=== PATIENT | male | born 1995 | race Caucasian/White ===

== ENCOUNTER 2019-04-25 20:49 | Emergency (ER) | payer OTHER ==
[2019-04-25 21:01] VITALS: BP 119/84; PULSE 61; TEMP 98.1; BMI 27.3
[2019-04-25] MEDS ORDERED: SODIUM CHLORIDE 1,000 ML IV STA (21:57)
[2019-04-25] MEDS ORDERED: ONDANSETRON 4 MG/2 ML VIAL IVPUSH ONE (21:57)
[2019-04-25] MEDS ORDERED: FAMOTIDINE 20 MG/50 ML IVPB 20 MG/50 ML MG IVPB ONE ×2 (21:57→22:10)
[2019-04-25] MEDS ORDERED: ACETAMINOPHEN 1000 MG/100 ML VIAL (NON FORMULARY) IVPB ONE (21:57)
--- NOTE | 2019-04-25 21:57 | PDOC ---
History of Present Illness <Wes Singh - Last Filed: 04/26/19 00:50> - General History Source: Patient Exam Limitations: No Limitations <Carly Mahajan - Last Filed: 04/26/19 01:08> - General Chief Complaint: Pain Stated Complaint: ABD/BACK/PAIN/VOMITTING/NAUSEA Time Seen by Provider: 04/25/19 21:32 Past History <Wes Singh - Last Filed: 04/26/19 00:50> - Travel Traveled outside of the country in the last 30 days: No Close contact w/someone who was outside of country & ill: No - Past Medical History CVA: No COPD: No - Psycho Social/Smoking Cessation Hx Smoking History: Never smoked Have you smoked in the past 12 months: No Information on smoking cessation initiated: No Hx Alcohol Use: No Drug/Substance Use Hx: No <Carly Mahajan - Last Filed: 04/26/19 01:08> - Past Medical History Allergies/Adverse Reactions: Allergies Allergy/AdvReac Type Severity Reaction Status Date / Time No Known Allergies Allergy Verified 04/25/19 21:01 Home Medications: Ambulatory Orders Famotidine [Pepcid -] 20 mg PO BID #14 tablet 04/26/19 Mag Hydrox/Al Hydrox/Simeth [Mylanta *Suspension*] 30 ml PO Q6H #1 bottle Ondansetron [Zofran Odt -] 4 mg SL TID #10 od.tablet 04/26/19 Review of Systems - Review of Systems Able to Perform ROS?: Yes Comments:: 04/26/19 00:56 CONSTITUTIONAL: Absent: fever, chills, diaphoresis, generalized weakness, malaise, loss of appetite HEENT: Absent: rhinorrhea, nasal congestion, throat pain, throat swelling, difficulty swallowing, mouth swelling, ear pain, eye pain, visual Changes CARDIOVASCULAR: Absent: chest pain, loss of consciousness, palpitations, irregular heart rate, peripheral edema RESPIRATORY: Absent: cough, shortness of breath, dyspnea with exertion, orthopnea, wheezing, stridor, hemoptysis GASTROINTESTINAL: Present: Abdominal pain, vomiting, nausea Absent: abdominal distension, diarrhea , constipation, melena, hematochezia GENITOURINARY: Absent: dysuria, frequency, urgency, hesitancy, hematuria, flank pain, genital pain MUSCULOSKELETAL: Absent: myalgia, arthralgia, joint swelling SKIN: Absent: rash, itching, pallor NEUROLOGIC: Absent: headache, focal weakness or paresthesias, dizziness, unsteady gait, seizure, mental status changes, bladder or bowel incontinence PSYCHIATRIC: Absent: anxiety, depression, suicidal or homicidal ideation, hallucinations. Is the patient limited [place] proficient: No <Carly Mahajan - Last Filed: 04/26/19 01:08> *Physical Exam - Vital Signs Last Vital Signs Temp Pulse Resp BP Pulse Ox 98.1 F 61 18 119/84 100 04/25/19 20:57 04/25/19 20:57 04/25/19 20:57 04/25/19 20:57 04/25/19 20:57 <FranciscoWes person - Last Filed: 04/26/19 00:50> - Vital Signs Last Vital Signs Temp Pulse Resp BP Pulse Ox 98.1 F 61 18 119/84 100 04/25/19 20:57 04/25/19 20:57 04/25/19 20:57 04/25/19 20:57 04/25/19 20:57 - Physical Exam 04/26/19 00:57 GENERAL: Well developed, well nourished. Awake and alert. No acute distress. HEENT: Normocephalic, atraumatic. PERRLA, EOMI. No conjunctival pallor. Sclera are non- icteric. Moist mucous membranes. Oropharynx is clear. NECK: Supple. Full ROM. CARDIOVASCULAR: Regular rate and rhythm. No murmurs, rubs, or gallops. Distal pulses are 2+ and symmetric. PULMONARY: No evidence of respiratory distress. Lungs clear to auscultation bilaterally. No wheezing, rales or rhonchi. ABDOMINAL: Tenderness palpation of the epigastric/right upper quadrant. Negative Corea sign. Soft. Non-distended. No rebound or guarding. No organomegaly. Normoactive bowel sounds. MUSCULOSKELETAL Normal range of motion at all joints. No bony deformities or tenderness. No CVA tenderness. EXTREMITIES: No cyanosis. No clubbing. No edema. No calf tenderness. SKIN: Warm and dry. Normal capillary refill. No rashes. No jaundice. NEUROLOGICAL: Alert, awake, appropriate. Cranial nerves 2-12 intact. No deficits to light touch and temperature in face, upper extremities and lower extremities. No motor deficits in the in face, upper extremities and lower extremities. Normoreflexic in the upper and lower extremities. Normal speech. Toes are down- going bilaterally. Gait is normal without ataxia. PSYCHIATRIC: Cooperative. Good eye contact. Appropriate mood and affect. <Carly Mahajan - Last Filed: 04/26/19 01:08> ED Treatment Course - LABORATORY CBC & Chemistry Diagram: 04/25/19 22:06 04/25/19 22:06 - ADDITIONAL ORDERS Additional order review: Laboratory Results 04/25/19 04/25/19 04/25/19 22:16 22:06 22:06 PT with INR 11.90 INR 1.01 Sodium Potassium Chloride Carbon Dioxide Anion Gap BUN Creatinine Est GFR (CKD-EPI)AfAm Est GFR (CKD-EPI)NonAf Random Glucose Calcium Total Bilirubin AST ALT Alkaline Phosphatase Total Protein Albumin Lipase 64 L Urine Color Yellow Urine Appearance Clear Urine pH 5.5 Ur Specific [place] 1.027 Urine Protein Negative Urine Glucose (UA) Negative Urine Ketones Negative Urine Blood Trace Urine Nitrite Negative Urine Bilirubin Negative Urine Urobilinogen 0.2 Ur Leukocyte Esterase Negative Urine WBC (Auto) 1 Urine RBC (Auto) 7 Urine Casts (Auto) 1 U Epithel Cells (Auto) 0.4 Urine Bacteria (Auto) 3.6 04/25/19 22:06 PT with INR INR Sodium 138 Potassium 4.2 Chloride 106 Carbon Dioxide 26 Anion Gap 5 L BUN 9.0 Creatinine 0.9 Est GFR (CKD-EPI)AfAm 138.06 Est GFR (CKD-EPI)NonAf 119.12 Random Glucose 145 H Calcium 8.9 Total Bilirubin 0.3 AST 35 ALT 34 Alkaline Phosphatase 77 Total Protein 7.6 Albumin 4.3 Lipase Urine Color Urine Appearance Urine pH Ur Specific [place] Urine Protein Urine Glucose (UA) Urine Ketones Urine Blood Urine Nitrite Urine Bilirubin Urine Urobilinogen Ur Leukocyte Esterase Urine WBC (Auto) Urine RBC (Auto) Urine Casts (Auto) U Epithel Cells (Auto) Urine Bacteria (Auto) 04/25/19 22:06 RBC 5.69 H MCV 88.0 MCHC 33.6 RDW 13.1 MPV 8.2 Neutrophils % 83.3 H Lymphocytes % 11.4 Monocytes % 4.3 Eosinophils % 0.7 Basophils % 0.3 - Medications Given in the ED: ED Medications Discontinued Medications Generic Name Dose Route Start Last Admin Trade Name Elma PRN Reason Stop Dose Admin Acetaminophen 1,000 mg 04/25/19 21:57 04/25/19 22:11 Ofirmev Injection - IVPB 04/25/19 21:58 1,000 mg ONCE ONE Administration Famotidine/Sodium Chloride 20 mg in 50 mls @ 100 mls/hr 04/25/19 21:57 22:11 Pepcid 20 Mg Premixed Ivpb - IVPB 04/25/19 22:26 100 mls/hr ONCE ONE Administration Sodium Chloride 1,000 mls @ 1,000 mls/hr 04/25/19 21:57 04/25/19 22:11 Normal Saline - IV 04/25/19 22:56 1,000 mls/hr ASDIR STA Administration Morphine Sulfate 2 mg 04/25/19 23:44 04/25/19 23:50 Morphine Injection - IVPUSH 04/25/19 23:45 2 mg ONCE ONE Administration Ondansetron HCl 4 mg 04/25/19 21:57 04/25/19 22:12 Zofran Injection IVPUSH 04/25/19 21:58 4 mg ONCE ONE Administration <Wes Singh - Last Filed: 04/26/19 00:50> - LABORATORY CBC & Chemistry Diagram: 04/25/19 22:06 04/25/19 22:06 <Carly Mahajan - Last Filed: 04/26/19 01:08> Medical Decision Making - Medical Decision Making 04/26/19 00:50 The patient was seen and evaluated in conjunction with RUPERT Mahajan under my direct supervision, ancillary studies were reviewed. I independently evaluated the patient and I agree with the plan as outlined by RUPERT Mahajan . <Wes Singh - Last Filed: 04/26/19 00:50> - Medical Decision Making 04/26/19 00:57 Patient is a 23-year-old male with no past medical history who presents to the ER with 3 days of nausea, vomiting and upper abdominal pain. He states that the pain got worse over the past 3 days. He notes that the pain is mostly in his upper mid stomach and radiates to the back. He last ate soup at 5 PM. He states the pain got worse after eating. He notes that he started vomiting today due to the pain. He has not taken any medication at home for his symptoms. Denies fevers, chills, sore throat, earache, difficulty breathing, chest pain, diarrhea, constipation and urinary symptoms. A/P: Abdominal pain On exam patient with epigastric/right upper quadrant pain. Negative Corea sign. No reproducible back pain. Lab work is relatively unremarkable, white count of 12 with no shift. Lipase is within normal limits, bilirubin within normal limits. Urine is negative for infection Right upper quadrant ultrasound shows no evidence of acute cholecystitis, cholelithiasis. CBD is not dilated. No evidence of pancreatitis Patient feels better after GI cocktail and morphine Likely a gastritis versus PUD versus reflux Will recommend supportive therapy and GI follow-up I discussed the physical exam findings, ancillary test results and final diagnoses with the patient. I answered all of the patient's questions. The patient was satisfied with the care received and felt comfortable with the discharge plan and treatment plan. The Patient agrees to follow up with the primary care physician/specialist within 24-72 hours. Return precautions were given. <Carly Mahajan - Last Filed: 04/26/19 01:08> Discharge <Wes Singh - Last Filed: 04/26/19 00:50> - Discharge Information Problems reviewed: Yes - Admission No <Carly Mahajan - Last Filed: 04/26/19 01:08> - Discharge Information Clinical Impression/Diagnosis: Abdominal pain Qualifiers: Abdominal location: epigastric Qualified Code(s): R10.13 - Epigastric pain Condition: Stable Disposition: HOME - Follow up/Referral Referrals: Douglas Pozo MD [Staff Physician] - - Patient Discharge Instructions Patient Printed Discharge Instructions: DI for Gastritis Additional Instructions: You were evaluated for your abdominal pain today. Your ultrasound did not show any abnormalities. Your gallbladder appeared normal. You most likely have gastritis. Eat a bland diet such as, applesauce, toast, plain rice, bananas, chicken noodle soup. Avoid spicy and fatty foods that this can make her symptoms worse. Please take the medication as directed to help with your symptoms. Please follow-up with your primary care doctor this week. 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 Please call to make an appointment with them tomorrow. Return to the ER for worsening pain, vomiting, fever or if you have any changes in your symptoms. - Post Discharge Activity Work/Back to School Note: Back to Work
[2019-04-25] MEDS ORDERED: ONDANSETRON 4 MG/2 ML VIAL ONE (22:10)
[2019-04-25] MEDS ORDERED: ACETAMINOPHEN INJECTION 100 ML IVPB ONE (22:10)
[2019-04-25 22:14] LABS: EOS % 0.7 % (0-4.5); MCH 29.6 pg (25.7-33.7); MCHC 33.6 g/dl (32.0-35.9)
[2019-04-25 22:28] LABS: EPI CELLS 0.4 /HPF (0-5/HPF); HYALINE CASTS 1 /lpf (0-8); PH,URINE 5.5 (5.0-8.0); URINE APPEARANCE CLEAR; URINE BACTERIA 3.6 /hpf (NEGATIVE); URINE BILIRUBIN NEGATIVE (NEGATIVE); URINE COLOR YELLOW; URINE GLUCOSE (UA) NEGATIVE (NEGATIVE); URINE KETONE NEGATIVE (NEGATIVE); URINE LEUK ESTERASE NEGATIVE (NEGATIVE); URINE NITRITE NEGATIVE (NEGATIVE); URINE PROTEIN NEGATIVE (NEGATIVE); URINE RBC 7 /hpf (0-4); URINE UROBILINOGEN 0.2 mg/dL (0.2-1.0); URINE WBC 1 /hpf (0-5)
[2019-04-25 22:30] LABS: INR 1.01 (0.83-1.09); PROTHROMBIN TIME (PATIENT) 11.9 SEC (9.7-13.0)
[2019-04-25 22:35] LABS: BASO % 0.3 % (0-2.0); HEMOGLOBIN 16.8 GM/dL (11.7-16.9); LYMPH % 11.4 % (8-40); MEAN PLT VOLUME 8.2 fl (7.5-11.1); MONO % 4.3 % (3.8-10.2); NEUT % 83.3 % (42.8-82.8); PLATELET COUNT 345 K/MM3 (134-434); RBC 5.69 M/mm3 (4.00-5.60); RDW 13.1 % (11.9-15.9); WHITE BLOOD COUNT 12.5 K/mm3 (4.0-10.0)
[2019-04-25 22:46] LABS: ALBUMIN 4.3 g/dl (3.4-5.0); BILIRUBIN,TOTAL 0.3 mg/dL (0.2-1); CALCIUM 8.9 mg/dL (8.5-10.1); CREATININE 0.9 mg/dL (0.55-1.3); POTASSIUM 4.2 mmol/L (3.5-5.1); TOT PROT 7.6 g/dl (6.4-8.2)
[2019-04-25] MEDS ORDERED: morphine CARPU-JECT 2 MG/1 ML DISP.SYRIN IVPUSH ONE (23:44)
[2019-04-25] MEDS ORDERED: MORPHINE SULFATE 2 MG/ML VIAL ONE (23:48)
== END 2019-04-26 01:27 | disposition home or self-care (01) ==
LOC: JER 20:49
PROC: 3E033NZ Introduction of Analgesics, Hypnotics, Sedatives into Peripheral Vein, Percutaneous Approach (ICD-10-PCS; principal; 2019-04-25)
PROC: 3E033GC Introduction of Other Therapeutic Substance into Peripheral Vein, Percutaneous Approach (ICD-10-PCS; 2019-04-25)
DX: R10.13 Epigastric pain (principal)
CPT/HCPCS: 36415; 76705-TC; 80053; 81003; 83690; 85025; 85610; 87086; 99283-25; J0131; J7030